=== PATIENT | female | born 1975 | race Caucasian/White ===

== ENCOUNTER 2016-09-11 11:01 | Emergency (ER) | payer BC ==
[2016-09-11 11:11] VITALS: BP 139/93
--- OUTSIDE RECORDS SUMMARY | 2016-09-11 11:24 | XMS REPORT | Continuity of Care Document ---
:1975 Author Organization [employer] [place] [address] Care Team Providers Name Role Phone Unavailable Primary Care Provider Unavailable Source Comments This disclosure is being made pursuant to the [employer] program and maynot contain all information available regarding this patient.[employer] Active Allergies and Adverse Reactions Not on File Current Medications Be aware that medications may not be up to date as of this document. Alwaysverify current medications with the patient. Not on file Active Problems Not on file Social History Tobacco Use Types Packs/Day Years Used Date Never Assessed Plan of Care Health Maintenance Due Date Last Done Comments Tetanus/Pertussis (1 - Tdap) 1992 Mammogram 2013 Retired-INFLUENZA VACCINE 02/19/2016 Pap Smear 10/20/2018 10/21/2015, Additional history exists 10/21/2015, 02/15/2014 Results from Last 3 Months Not on file
--- OUTSIDE RECORDS SUMMARY | 2016-09-11 11:24 | XMS REPORT | Continuity of Care Document ---
:1975 Author Organization [facility] ([facility]) Address [place] [address] Phone [phone] Care Team Providers Name Role Phone Provider, No-Primary Care Primary Care Provider Unavailable Source Comments This disclosure is being made pursuant to the Care Everywhere program, applicable federal and state laws, and may not contain all informaitonavailable regarding this patient.[facility] ([facility]) Active Allergies and Adverse Reactions Allergen Noted Date Severity Reactions Comments Codeine Nausea & Vomiting Current Medications Prescription Sig. Disp. Refills Start Date End Date Status citalopram 20 mg tablet take 20 mg by mouth Active daily. traZODone 50 mg tablet take 50 mg by mouth Active at bedtime as needed for Sleep. 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 Abdominal pain, unspecified site 06/26/2008 Social History Tobacco Use Types Packs/Day Years Used Date Never Assessed Last Filed Vital Signs Vital Sign Reading Time Taken Blood Pressure 105/79 07/12/2008 9:16 AM [employer] TECH[employer]ICIAN Pulse 99 07/12/2008 9:16 AM [employer] TECHNICIAN Temperature 36.6 C (97.88 F) 07/12/2008 9:16 AM W[employer] FI[employer] TECHNICIAN Respiratory Rate 16 07/12/2008 9:16 AM [employer]ESS FI[employer] TECHNICIAN Height 1.722 m (5' 7.79") 06/26/2008 1:47 PM [employer] TECHNICIAN Weight 77.497 kg (170 lb 13.6 oz) 07/12/2008 9:16 AM W[employer] TECHNICIAN Body Mass Index 26.13 07/12/2008 9:16 AM [employer] TECHNICIAN Oxygen Saturation 100% 05/20/2008 6:02 AM W[employer] FI[employer] TECHNICIAN Plan of Care Health Maintenance Due Date Last Done Comments Hepatitis B Vaccine (1 of 3 - Primary Series) 1973 Tdap Vaccine 1984 Lipid Disorder Screening 1991 MMR Vaccine 1991 Td Vaccine 1991 Pneumococcal Vaccine (1 of 3 - PCV13) 1992 Cervical Cancer Screening 2003 Mammogram 2013 Influenza Vaccine: Seasonal (#1) 01/19/2016 Results from Last 3 Months Not on file
--- NOTE | 2016-09-11 11:46 | ERNOTE ---
Dizziness ER Record Date of Service: 09/11/16 Presenting Symptoms: dizziness, vertigo Time Seen by Provider: 09/11/16 11:08 Source: patient Exam Limitations: no limitations Immunizations: IMMUNIZATION HX Immunizations Up to Date Yes Allergies/Adverse Reactions: Allergies Allergy/AdvReac Type Severity Reaction Status Date / Time codeine Allergy Verified 09/11/16 11:11 Home Medications: HOME MEDICATIONS Levothyroxine Sodium [Synthroid] 100 mcg PO DAILY 09/11/16 [Last Taken Unknown] Meclizine HCl [Antivert] 25 mg PO QID PRN #40 tab 09/11/16 [Last Taken Unknown] - History of Present Illness Narrative: Pt. comes in with c/o dizziness since she awoke this morning. Pt. denies any symptoms like this previously. Pt. denies any recent illness or prehospital treatment. Pt. states that the dizziness worsens with movement and can feel her eyes twitch if she moves too quickly. Pt. states that she feels like the room is spinning. Pt. denies any headache, SOB, CP, vision changes, or palpitations. Pt. states that lying still alleviates the symptoms. P. states that a week ago she had water trapped in her L ear but states that resolved since. Review of Systems - Review of Systems Constitutional: Present: no symptoms reported. Absent: recent illness, fever, chills, weakness, fatigue, malaise EYE: Present: no symptoms reported ENT: Present: no symptoms reported. Absent: ear pain, nose congestion, nasal drainage Respiratory: Present: no symptoms reported. Absent: shortness of breath, cough , wheezing Cardiology: Present: no symptoms reported. Absent: chest pain, palpitations, edema Gastrointestinal/Abdominal: Present: nausea, vomiting. Absent: diarrhea, abdominal pain Genitourinary: Present: no symptoms reported Musculoskeletal: Present: no symptoms reported. Absent: back pain, joint pain Skin: Present: no symptoms reported. Absent: rash, change in color, change in hair/nails Neurological: Present: dizziness/light-headedness. Absent: anxiety, headache, weakness, numbness, tingling All Other Systems: All systems neg except as marked - Patient's Past Medical History Patient History - Medical: Hypothyroidism Patient History - Cardiac/Respiratory: No pertinent hx Patient History - Cancer: Ovarian Patient History - Surgical Procedures: , Hysterectomy, Other - Social History Smoking Status: Never smoker Have you smoked in the past 12 months: No - Immunizations Immunizations Up to Date: Yes Physical Exam - Physical Exam General Appearance: Present: wd/wn, alert, no apparent distress Eye Exam: Normal inspection: bilateral, PERRL: bilateral, EOMI: bilateral Ears, Nose, Throat: Present: normal ENT inspection, normal pharynx Neck: Present: normal inspection, nontender. Absent: lymphadenopathy (R), lymphadenopathy (L) Respiratory: Present: no respiratory distress, normal breath sounds, no accessory muscle use, chest nontender, lungs clear Cardiovascular/Chest: Present: regular rate, rhythm, no murmur, normal peripheral pulses Gastrointestinal/Abdominal: Present: normal bowel sounds, nontender, nondistended, soft, no organomegaly Back Exam: Present: normal inspection, normal range of motion, no CVA tenderness , no vertebral tenderness Neurological Exam: Present: alert, oriented, normal mood/affect, no motor/ sensory deficits, lean leader II-XII nml as tested, normal cerebellar test, other - alma maneuver positive L side Skin Exam: Present: normal color, warm/dry. Absent: pallor, skin rash ED Progress - Date and Time Seen: Date and Time: 09/11/16 12:47 Pt. TSH elevated to 5.139 so will have her follow up with her primary provider in a week for TSH recheck as I feel that if I start her on levothyroxine that she may have an adverse reaction prior to being able to see her PCP as these follow up visits can sometimes be delayed, and I do not feel it is related to her current problem. 09/11/16 12:50 Pt. has viral shift to her CBC so will start on Meclizine and see if vertigo clears up after virus resolves by the time she follows up with her PCP in 5-7 days. 09/11/16 13:24 Pt. symptoms resolved at this time. Discussed case with Dr Hayder hernandes and he agrees with POC. - Vital Signs Patient's Vital Signs:: I have reviewed the patient's vital signs. Vital Signs: Vital Signs 09/11/16 11:06 Temperature 36.3 C L Pulse Rate 72 Respiratory 14 Rate Blood Pressure 139/93 O2 Sat by Pulse 97 Oximetry - EKG EKG: NSR EKG read: Reviewed by me EKG Comments: Interpreted By Dr Hayder Hernandes - Progress/Reassessment Chief Complaint: Dizziness Departure Clinical Impression: Vertigo, Labyrinthitis of left ear - Departure Disposition: Home self-care Condition: Good Instructions: Labyrinthitis, [id number], Vertigo, [id number] Additional Instructions: Please take meclizine until symptoms resolve and follow up with primary provider in 5-7 days for repeat TSH level. Prescriptions: Meclizine HCl [Antivert] 25 mg PO QID PRN #40 tab PRN Reason: DIZZINESS
[2016-09-11 11:55] LABS: Hematocrit 40.7 % (37.0-47.0); Hemoglobin 13.8 gm/dL (12.5-16.0); Mean Cell Volume 89.1 fl (78-100); Mean Corpuscular Hemoglobin 30.2 pg (27-31); Mean Corpuscular Hgb Conc 33.9 g/dl (32-36); Mean Platelet Volume 10.2 fl (6.0-9.5); Neutrophil # 2.3 K/mm3 (1.3-6.0); Neutrophil % 63.1 % (42-75.0); Platelet Count 208 K/mm3 (150-450); Red Blood Count 4.57 M/mm3 (4.2-5.4); White Blood Count 3.6 K/mm3 (4.0-10.5)
[2016-09-11 12:14] LABS: Troponin I Less than 0.017 ng/ml (0.00-0.10)
[2016-09-11 12:18] LABS: ALT 28 U/L (19-67); AST 21 U/L (0-48); Albumin * 3.8 gm/dl (3.4-5.0); Alkaline Phosphatase * 74 U/L (50-170); Anion Gap 11.2 mmol/L (6.8-13.8); Bilirubin, Total 0.4 mg/dL (0.0-1.1); Blood Urea Nitrogen 12 mg/dL (3-23); Ca. Corrected For Albumin 8.8 mg/dL (8.4-10.2); Carbon Dioxide 28.7 mmol/L (24-32.6); Chloride 105 mmol/L (97-106); Glucose * 111 mg/dL (70-110); Potassium 3.9 mmol/L (3.4-4.6); Sodium 141 mmol/L (132-142); T4 Free * 1.03 ng/dL (0.76-1.46); TSH * 5.159 uIU/mL (0.358-3.74); Total Protein 7.7 gm/dL (6.2-8.2)
[2016-09-11 12:19] LABS: Urine Appearance Clear; Urine Bacteria None Seen; Urine Bilirubin Negative (NEGATIVE); Urine Blood Negative /ul (NEGATIVE); Urine Color Yellow; Urine Ketone Negative (NEGATIVE); Urine Nitrite Negative (NEGATIVE); Urine Protein Negative (NEGATIVE); Urine RBC None Seen /hpf (0-5); Urine Specific Gravity 1.015 SP.GR. (1.005-1.010); Urine Urobilinogen Normal (NORMAL); Urine WBC None Seen /hpf (0-5)
[2016-09-11] MEDS ORDERED: MECLIZINE HCL 25 MG TABLET PO ONE (12:43)
[2016-09-11] MEDS ORDERED: MECLIZINE HCL 25 MG TABLET ONE (12:45)
== END 2016-09-11 13:30 | disposition home or self-care (01) ==
LOC: ER 11:01
DX: R42 Dizziness and giddiness (principal); H83.02 Labyrinthitis, left ear; E03.9 Hypothyroidism, unspecified